=== PATIENT | male | born 1985 | race Caucasian/White ===

== ENCOUNTER 2017-01-09 18:17 | Inpatient (IN) | payer OTHER ==
--- NOTE | ~2017-01-09 | PN ---
Unit #: [id number] #: [id number] Patient: NABOR ALICIA [id number] [facility] [address] [place] [address] [id number] MR#: [id number] NAME: NABOR ALICIA ROOM: [facility] Age: 31 Sex: M Admission Date: 01/09/2017 : 1985 Attending Physician: Harshal Mitchell M.D. Admitting Physician: Harshal Mitchell M.D. Primary Care Physician: Primary Care Physician Arleen ESPINO NOTES DATE January 11, 2017 DISCUSSION Nabor Alicia is a 31-year-old male, seen on 01/11/2017. The patient interviewed, chart reviewed, and obtained information from the nursing staff. The patient continues to report feeling sad, depressed, withdrawn, isolative, flat affect, but able to contract for safety but still having significant symptoms of depression, anxiety. Vital signs stable, 98.4, 62, 101/60. The patient tolerating medication fairly well. REVIEW OF SYSTEMS Complete review of systems unremarkable. MENTAL STATUS EXAMINATION General appearance: Patient dressed casually. Attention span and concentration, fair. Oriented in place and person. Mood and affect, sad and dysphoric. Speech, monotone. Thought process, concrete. The patient denied any thoughts of harming self or others but still feeling sad, depressed, feelings of hopelessness. Recent and remote memory, poor. Insight and judgment, poor. DIAGNOSES 1. Major depressive disorder, recurrent. 2. Opiate use disorder, moderate. 3. Methamphetamine use disorder, moderate. ASSESSMENT/PLAN Advised to continue with the current therapeutic treatment on the inpatient unit, if needed consider further adjustment of medication. Dictated by... Rudy Alcocer/wilber TD: 01/12/2017 06:38 JOB #: [id number] Unit #: [id number] #: [id number] Patient: NABOR ALICIA PROGRESS NOTES Page 1 of 1 X Harshal Mitchell MD PROGRESS NOTE
--- NOTE | ~2017-01-09 | PN ---
Unit #: [id number] #: [id number] Patient: NABOR ALICIA [id number] [facility] [address] [place] [address] [id number] MR#: [id number] NAME: NABOR ALICIA ROOM: [facility] Age: 31 Sex: M Admission Date: 01/09/2017 : 1985 Attending Physician: Harshal Mitchell M.D. Admitting Physician: Harshal Mitchell M.D. Primary Care Physician: Primary Care Physician Arleen RICARDO PROGRESS NOTES DATE 01/10/2017 DISCUSSION Nabor Alicia is a 31-year-old male seen on 01/10/2017. Patient interviewed. Chart reviewed. Obtained information from nursing staff. Patient was compliant, cooperative. Mood sad, dysphoric, flat affect, guarded, isolative. Patient's vital signs are stable. Compliant with medication. Complete review of system unremarkable. MENTAL STATUS EXAMINATION General appearance, patient dressed casually. Attention span, concentration fair. Oriented in place and person. Mood and affect labile. Speech monotone. Thought process concrete. Patient denied any thoughts of harming self or others but guarded. Recent and remote memory poor. Insight and judgement poor. DIAGNOSES 1. Major depressive disorder, recurrent, severe, F33.2. 2. Opiate use disorder, severe, F11.20. 3. Amphetamine use disorder, moderate. ASSESSMENT/PLAN Advised to continue with current medication and therapeutic protocol. If needed, consider further adjustment of medication. Dictated by... Rudy Alcocer/luciano TD: 01/10/2017 18:04 JOB #: [id number] Unit #: [id number] #: [id number] Patient: NABOR ALICIA PROGRESS NOTES Page 1 of 1 X Harshal Mitchell MD PROGRESS NOTE
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
--- NOTE | ~2017-01-09 | DS ---
Unit #: [id number] #: [id number] Patient: NABOR VENEGAS [id number] [facility] [address] [place] [address] [id number] MR#: [id number] NAME: NABOR VENEGAS ROOM: [facility] Age: 31 Sex: M Admission Date: 01/09/2017 : 1985 Discharge Date: 01/12/2017 Attending Physician: Harshal Mitchell M.D. Primary Care Physician: Primary Care Physician No DISCHARGE SUMMARY REASON FOR ADMISSION Depression, anxiety, and suicidal ideation. DIAGNOSTIC STUDIES LABORATORY RESULTS: Remarkable for urine drug screen positive for amphetamine. HOSPITAL COURSE The patient was admitted to inpatient unit on 01/09/2017 and discharged on 01/12/2017. The patient was treated with group therapy, individual therapy, medication management. The patient was responsive to treatment. Subsequently, the patient was discharged with a plan to follow up in outpatient program. DISCHARGE MEDICATIONS None. DISCHARGE DIAGNOSES Psychiatric: Major depressive disorder, recurrent, severe, F33.2; opioid use disorder, severe, F11.20; amphetamine use disorder, moderate, F15.20. Secondary diagnosis: Deferred. Medical diagnosis: None. Stressors: Psychosocial stressors. DISCHARGE INSTRUCTIONS The patient to follow up in outpatient clinic as per director of social work. CONDITION ON DISCHARGE The patient was pleasant and cooperative. Denied any psychotic symptom or any suicidal ideation. PROGNOSIS Guarded. DIET AND ACTIVITY As tolerated. Dictated by... Harshal Mitchell M.D. Unit #: [id number] #: [id number] Patient: NABOR VENEGAS SZC/modl TD: 01/27/2017 23:23 JOB #: [id number] DISCHARGE SUMMARY Page 1 of 1 X Harshal Mitchell MD X DISCHARGE SUMMARY
--- NOTE | ~2017-01-09 | HP ---
Unit #: [id number] #: [id number] Patient: NABOR VENEGAS [id number] [place] [address] [id number] MR#: [id number] NAME: NABOR VENEGAS ROOM: [facility] Age: 31 Sex: M Admission Date: 01/09/2017 : 1985 Attending Physician: Harshal Mitchell M.D. Admitting Physician: Harshal Mitchell M.D. Primary Care Physician: Primary Care Physician No HISTORY AND PHYSICAL HISTORY OF PRESENT ILLNESS Nabor is a 31 year old admitted to [facility] because of his polysubstance abuse which includes snorting heroin and methamphetamine. He has had other admissions to this facility for the same. PAST MEDICAL HISTORY Long history of polysubstance abuse. PAST SURGICAL HISTORY Nothing reported. ALLERGIES Penicillin, Phenergan. SOCIAL HISTORY Smokes at least 1 pack per day. Drinks alcohol on occasion. Admits to a history of illicit substance abuse. FAMILY HISTORY Medically noncontributory. REVIEW OF SYSTEMS CONSTITUTIONAL: No fever or chills. HEENT: Denies any sore throat, ear pain or runny nose. CARDIOVASCULAR: Denies chest pain, irregular heart rhythm or palpitations. CHEST: Denies shortness of breath or cough. No hemoptysis. GASTROINTESTINAL: Denies nausea, vomiting, diarrhea or chronic constipation. ENDOCRINE: Denies history of increased thirst or urination. No recent significant weight loss or gain. GENITOURINARY: Denies dysuria, frequency, or hematuria. SKIN: Denies any rashes. HEMATOLOGIC: Denies history of increased bleeding or bruising. MUSCULOSKELETAL: Denies any hot, swollen joints. No generalized muscle pain. NEUROLOGIC: Denies problems with vision or speech. No frequent, severe headaches. No numbness, tingling or weakness in any extremities. Denies loss of bladder or bowel control. CURRENT MEDICATIONS 1. Detox protocol. 2. Celexa 20 mg daily. Unit #: [id number] #: [id number] Patient: NABOR VENEGAS PHYSICAL EXAMINATION GENERAL: Alert, well-nourished, in no apparent distress. VITAL SIGNS: Blood pressure 124/78, heart rate 80, respirations 16, temperature 98.6. WEIGHT: 115. HEIGHT: 5 feet 7 inches. SKIN: Warm and dry without rash or lesion. HEENT: Normocephalic. TMs not viewed. Oral and nasal passages clear. Conjunctivae clear. PERRLA. EOMs intact. NECK: Supple without lymphadenopathy or thyromegaly. HEART: Regular rate and rhythm without murmur. LUNGS: Clear. ABDOMEN: Soft, nontender. : Not done. EXTREMITIES: No evidence of cyanosis, clubbing or edema. Moves all without focal deficit. NEUROLOGICAL: Grossly within normal limits. Cranial Nerves: II: Visual tyson are intact. III, IV AND : Extraocular movements are intact. Pupils are equal, round and reactive to light. V: Facial sensation is grossly normal. VII: Facial movements and expression are normal. VIII: Auditory acuity grossly intact. IX, X: Uvula is midline. Phonation is normal. XI: Patient shrugs shoulders and turns head normally. XII: Tongue protrudes in the midline. Sensory and Motor Function: Sensory and motor sensation is grossly normal. Motor: moves all extremities well. Coordination: Gait is normal. Deep Tendon Reflexes: Intact. IMPRESSION Psychiatric admission. RECOMMENDATIONS PSYCHIATRIC: Per psychiatrist. MEDICAL: See no contraindications to participate in facility's activities. MEDICAL PROGNOSIS Good. MEDICAL CONDITION Stable. Dictated by... Janet LucasAJenn-Josie. for Rudy Damon/luciano TD: 01/10/2017 18:25 JOB #: [id number] Unit #: [id number] #: [id number] Patient: NABOR VENEGAS HISTORY AND PHYSICAL Page 1 of 1 X Sarina Wagoner HISTORY AND PHYSICAL
[~2017-01-09 18:17] MED LIST: E-MYCIN250 MG PO; FLOXIN20 EA OT; KEFLEX PO
[2017-01-10 09:42] LABS: BASOPHIL% 0.5 % (0-2.5); EOSINOPHIL# 0.2 X10e3 (0-0.7); HEMATOCRIT 41.2 % (38.0-50.0); HEMOGLOBIN 13.4 gm/dL (13.0-16.0); LYMPHOCYTE# 2.1 X10e3 (1.0-3.5); LYMPHOCYTE% 41.7 % (17.0-45.0); MEAN CELL VOLUME 87.8 FL (83-96); MEAN CORPUSCULAR HEMOGLOBIN 28.6 PG (28-34); MEAN CORPUSCULAR HGB CONC 32.6 g/dL (30-36); MEAN PLATELET VOLUME 7.5 FL (6.5-11.5); MONOCYTE# 0.6 X10e3 (0-1.0); MONOCYTE% 12.1 % (3.0-12.0); NEUTROPHIL# 2.1 X10e3 (1.5-7.1); NEUTROPHIL% 41.7 % (40-75); PLATELET COUNT 244 X10e3 (140-420); RED BLOOD COUNT 4.69 X10e (3.90-5.60); RED CELL DISTRIBUTION WIDTH 13.3 % (11.0-15.5); WHITE BLOOD COUNT 4.9 X10e3 (4.0-10.5)
[2017-01-10 09:45] LABS: DIFF IND NO
[2017-01-10 09:59] LABS: ALBUMIN SERUM 3.6 g/dL (3.5-5.0); BILIRUBIN,TOTAL 0.4 mg/dL (0.2-2.0); BUN/CREATININE RATIO 13.63; CALCIUM SERUM 9.1 mg/dL (8.4-10.2); CREATININE SERUM 1.1 mg/dL (0.6-1.4); GLOM FILT RATE Estimated 87.8 mL/min (>60); POTASSIUM 4.7 mmol/L (3.5-5.1); PROTEIN TOTAL SERUM 6.3 g/dL (6.0-8.3)
== END 2017-01-12 13:20 | DRG 885 ==
LOC: P1E 19:58
PROVIDERS: Psychiatry & Neurology Psychiatry
PROC: HZ2ZZZZ Detoxification Services for Substance Abuse Treatment (ICD-10-PCS; principal; 2017-01-10)
DX: F33.2 Major depressive disorder, recurrent severe without psychotic features (principal); F11.20 Opioid dependence, uncomplicated; R45.851 Suicidal ideations; F15.20 Other stimulant dependence, uncomplicated; Z88.0 Allergy status to penicillin; F17.210 Nicotine dependence, cigarettes, uncomplicated
CPT/HCPCS: 80053; 85025; 86592